=== PATIENT | female | born 1965 | race Caucasian/White ===

== ENCOUNTER → 2017-09-03 | Outpatient (CLI) | payer OTHER ==
[~2017-09-03] VITALS: Ht 152.4 cm; Wt 56.7 kg
[~2017-09-03] MED LIST: TYLENOL325 MG PO
--- NOTE | ~2017-09-03 | P ---
[facility] [place] [address] PROCEDURE REPORT Name: JASMINE VEGA Ishmael Room [facility] [id number] Admission: 09/03/17 Attend Phys: Branden Navas Discharge: Date of : 65 Report #: [id number] THIS REPORT FOR: //name// CC: Branden Reeder DATE OF SERVICE: 09/03/2017 PROCEDURE PERFORMED: Colonoscopy. HISTORY OF PRESENT ILLNESS: The patient is a 52-year-old female who presents today for a routine screening colonoscopy. She denies any symptoms. No family history of colon cancer. PROCEDURE: The risks and benefits of the procedure were explained to the patient, those risks including, but not limited to bleeding, perforation, and the risk of sedation. She understood these risks and gave informed consent. Sedation was given using propofol per anesthesia. Next, a digital rectal exam was initially performed, which was normal. Next, using a standard Fujinon colonoscope, the scope was placed in the patient's anus and advanced under direct vision to the cecum. The overall prep was excellent. The cecum and the ileocecal valve were normal in appearance. The ascending, transverse and descending colon were normal. In the sigmoid colon, a single diverticulum was noted. No evidence of inflammation. The rectal mucosa was normal. On retroflexion, small internal hemorrhoids were noted, otherwise normal colonoscopy. The scope was then withdrawn and the procedure terminated. The patient tolerated the procedure well. IMPRESSION: 1. Sigmoid diverticulosis. 2. Small internal hemorrhoids. 3. Otherwise, normal colonoscopy. RECOMMENDATIONS: Repeat colonoscopy in 10 years. Thank you for allowing me to participate in her care. By: 0904 [id number] Branden Medina MD /nt
== END | disposition home or self-care (01) ==
LOC: GI
DX: Z12.11 Encounter for screening for malignant neoplasm of colon (principal); K57.30 Diverticulosis of large intestine without perforation or abscess without bleeding; K64.8 Other hemorrhoids; F17.210 Nicotine dependence, cigarettes, uncomplicated
CPT/HCPCS: 62110; 62900